=== PATIENT | male | born 1945 | race Caucasian/White ===

== ENCOUNTER 2020-08-14 01:05 | Day surgery (SDC) | payer MEDICARE, OTHER, SELFPAY ==
[2020-08-07 15:25] VITALS: BMI 36.9
--- NOTE | 2020-08-13 10:08 | WPDANESEPPF ---
Anes - Initial Pre Proc Eval Procedure: Operation Date: 08/14/20 07:30 Proposed Procedures p Right Calcaneus Metatarsal Osteotomy, Tendon Transfer Tibialis Anterior, Peroneal Tenodesis, - Abraham Pena MD s Achilles and Plantar Fascia Release - Abraham Pena MD Date/Time: 08/13/20 10:08 Surgeon: Abraham Pena MD Pre Op Diagnosis: right cavovarus foot Patient Data Age: 75 Gender: M Height: 1.85 m Weight: 127 kg Allergies Allergy/AdvReac Type Severity Reaction Status Date / Time No Known Allergies Allergy Verified 08/07/20 15:24 Home Medications Medication Instructions Recorded Confirmed Type amlodipine 5 mg tablet 5 mg PO QAM 07/09/20 08/07/20 History aspirin 81 mg tablet,delayed 81 mg PO DAILY 07/09/20 08/07/20 History release atorvastatin 40 mg tablet 40 mg PO HS 07/09/20 08/07/20 History carvedilol 3.125 mg tablet 3.125 mg PO BID 07/09/20 08/07/20 History levothyroxine 50 mcg capsule 50 mcg PO QAM 07/09/20 08/07/20 History lisinopril 10 mg tablet 10 mg PO QAM 07/09/20 08/07/20 History nitroglycerin 0.4 mg sublingual 0.4 mg SUBLINGUAL Q5M PRN 07/09/20 08/07/20 History tablet oxygen-air delivery systems 07/09/20 07/09/20 History loratadine 10 mg PO DAILY 08/07/20 08/07/20 History multivitamin [Daily Multiple] 1 tablet PO DAILY 08/07/20 08/07/20 History tamsulosin 0.4 mg PO HS 08/07/20 08/07/20 History Patient hx anesthesia problems: none Family hx anesthesia problems: none [facility] Past Medical History Medical History (Updated 08/13/20 @ 16:10 by Abraham Pena MD) Acquired cavovarus deformity of right foot Foot pain, right History of skin cancer Hyperlipidemia Hypertension MIRANDA (obstructive sleep apnea) CPAP Peroneal tendonitis of right lower leg Sleep apnea Vertigo Wears glasses Weight gain Surgical History Surgical History History of surgery Right leg, 2020, Dr. [place] History of thyroidectomy Social History Social History Smoking packs per day: 1.25 Smoking cigarettes per day: 25.0 Years smoked: 41 Smoking pack-years: 51.25 Smoking status: Former smoker Tobacco type: cigarettes Smoking end date: 08/07/04 Alcohol intake: current Alcohol use details: 5 per year Substance use: never Substance use type: does not use Living arrangements: alone Gender identity (if verbalized by the patient): Male Spiritual care concerns: No Anes - Eval Final PreProcedure Day of Procedure 08/13/20 10:08 Patient weight: obese Heart: regular rate and rhythm Lungs: clear to auscultation and normal air movement Airway: Mallampati scale class III Neurological: alert and oriented Last oral intake: >/= 8 hours ASA classification: III Emergent: no Anesthetic plan: proceed Anesthesia type and monitoring: general LMA and standard monitoring Informed Consent: The patient's anesthetic plan and its attendant risks and benefits were discussed with the patient/family/POA. Questions were solicited and answers provided to the satisfaction of the patient/family/POA.
--- NOTE | 2020-08-13 10:21 | WPDANESPNB ---
Anes - Peripheral Nerve Block Date/Time: 08/13/20 10:21 I have discussed with the patient/family/POA the placement of a peripheral nerve block for post-operative pain management, including associated risks, benefits, complications, and side effects. Alternative methods of post-operative analgesia were detailed. Questions were solicited and answers provided to the satisfaction of the patient/family/POA. Time-Out: A pre-procedural Time-Out was completed immediately before starting the procedure and confirmed: Patient Identification, Site, Procedure, Patient Position and the Availability of Requisite Equipment. Clinical Indications: Acute post-operative pain management requested by the operative surgeon. Nerve Block Insertion Note Anes-nerve block: posterior fossa sciatic right and adductor canal right Patient position: supine (for adductor canal) and other (right lateral for popliteal) Skin prep: chlorhexidine Needle: 22 gauge, stimulating, insulated echogenic needle. Needle length: 80 mm Technique: nerve stimulation lost at (mA) (for popliteal lost at 0.2) and ultrasound Injectate: bupivacaine 0.5% with epi 5 mcg/ml (20 mL for popliteal, 10 mL for adductor canal (no epi)) Observations: tolerated well Complications: none Procedure start time:: 710 Procedure end time:: 720
--- NOTE | 2020-08-13 16:07 | PM.IMHP ---
H&P: HPI History of Present Illness Date/Time: 08/13/20 16:07 Chief Complaint: Right foot deformity with pain Narrative: 75-year-old gentleman with right cavovarus foot deformity, weakness, stiffness and pain with activity. Patient has failed non operative treatment including bracing, inserts, physical therapy, medication and home exercise regimen. He has a history of previous skin cancer of the right lower leg. He presents now for operative treatment for his foot deformity. Review of Systems Constitutional: Constitutional: Denies fever(s) Eyes: Eyes: Denies blurry vision ENT: Reports Normal hearing present Cardiovascular: Cardiovascular: Denies chest pain and Denies dyspnea Respiratory: Respiratory: Denies dyspnea and Denies wheezing Gastrointestinal: Gastrointestinal: Denies abdominal pain Genitourinary: Genitourinary: Denies urinary urgency Musculoskeletal: Musculoskeletal: Reports as per HPI and Denies numbness Integumentary/Breasts: Skin/Breast: Denies changing lesions, Reports lesions ( Right lower leg) and Denies sores Neurologic: Reports Normal hearing present, Denies behavioral changes, Denies confusion, Denies numbness and Denies convulsions Psychiatric: Psychiatric: Denies behavioral changes, Denies confusion and Denies hallucinations Endocrine: Endocrine: Denies heat intolerance Hematologic/Lymphatic: Hematologic/Lymphatic: Denies easy bleeding Allergic/Immunologic: Allergic/Immunologic: Denies wheezing PMFSH Past Medical History Medical History (Updated 08/13/20 @ 16:10 by Abraham Pena MD) Acquired cavovarus deformity of right foot Foot pain, right History of skin cancer Hyperlipidemia Hypertension MIRANDA (obstructive sleep apnea) CPAP Peroneal tendonitis of right lower leg Sleep apnea Vertigo Wears glasses Weight gain Surgical History Surgical History History of surgery Right leg, 2020, Dr. [place] History of thyroidectomy Social History Social History Smoking packs per day: 1.25 Smoking cigarettes per day: 25.0 Years smoked: 41 Smoking pack-years: 51.25 Smoking status: Former smoker Tobacco type: cigarettes Smoking end date: 08/07/04 Alcohol intake: current Alcohol use details: 5 per year Substance use: never Substance use type: does not use Living arrangements: alone Gender identity (if verbalized by the patient): Male Spiritual care concerns: No Meds Home Medications and Allergies Home Medications Medication Instructions Recorded Confirmed Type amlodipine 5 mg tablet 5 mg PO QAM 07/09/20 08/07/20 History aspirin 81 mg tablet,delayed 81 mg PO DAILY 07/09/20 08/07/20 History release atorvastatin 40 mg tablet 40 mg PO HS 07/09/20 08/07/20 History carvedilol 3.125 mg tablet 3.125 mg PO BID 07/09/20 08/07/20 History levothyroxine 50 mcg capsule 50 mcg PO QAM 07/09/20 08/07/20 History lisinopril 10 mg tablet 10 mg PO QAM 07/09/20 08/07/20 History nitroglycerin 0.4 mg sublingual 0.4 mg SUBLINGUAL Q5M PRN 07/09/20 08/07/20 History tablet oxygen-air delivery systems 07/09/20 07/09/20 History loratadine 10 mg PO DAILY 08/07/20 08/07/20 History multivitamin [Daily Multiple] 1 tablet PO DAILY 08/07/20 08/07/20 History tamsulosin 0.4 mg PO HS 08/07/20 08/07/20 History Allergies Allergy/AdvReac Type Severity Reaction Status Date / Time No Known Allergies Allergy Verified 08/07/20 15:24 Exam Const: General: healthy appearing; No in distress or confusion Orientation/consciousness: oriented to person, oriented to place, oriented to time and No confusion HENMT: Head: normal to inspection, normocephalic and atraumatic Eyes: Conjunctivae: conjunctivae normal Sclera: sclerae normal Neck: Neck: supple and nontender Resp: Effort & Inspection: normal respiratory effort and no audible wheezes Cardio: Rate: regula
[2020-08-14] VITALS (20 sets, daily range): BP systolic 100–149; BP diastolic 37–73; PULSE 68–86; RESP 12–18; TEMP 36.1–36.5; O2SAT 88–100
--- NOTE | ~2020-08-14 | XR_ITS ---
EXAMINATION: XR surgery orthopedic DATE: 08/14/2020 10:34 INDICATION: Right foot surgery. TECHNIQUE: 3 intraoperative fluoroscopic views of right foot were obtained. I was not present. Fluoro scopy exposure time was 28 seconds. COMPARISON: Right foot radiographs 07/09/2020 FINDINGS: There are changes of calcaneal osteotomy with fixation with 2 lag screws. There is an osteo radha of first metatarsal with staple fixation. Skin max are noted. IMPRESSION: 1. Osteotomies of calcaneus and first metatarsal with internal fixation. Reviewed, dictated and finalized at location A.
[2020-08-14] MEDS: ACETAMINOPHEN 500 MG TABLET 1000 MG PO (06:31)
[2020-08-14] MEDS: KETOROLAC 15 MG/ML VIAL (*BKC) IV PUSH (06:32)
[2020-08-14] MEDS: LACTATED RINGERS 1,000 ML 30 ML IV CONT ×2 (06:39→11:00)
--- NOTE | 2020-08-14 06:59 | WPDHPUPDATE1 ---
History and Physical Update Update Date/Time: 08/14/20 06:59 History and Physical has been reviewed, including an updated exam of the patient. There are NO changes in the patient's condition. Risks, benefits, and alternatives have been discussed and questions answered. Patient agrees to proceed with procedure.
[2020-08-14] MEDS: ceFAZolin 3 GM/D5W 100 ML 100 ML IVPB (07:28)
--- NOTE | 2020-08-14 11:26 | W.PM.PROC2 ---
Procedure Note - Detailed Date of Procedure 08/14/20 Pre-op Diagnosis right cavovarus foot , muscle imbalance Post-op Diagnosis same Procedure Performed right foot correction with calcaneal and metatarsal osteotomies, tibialis anterior transfer to the midfoot, peroneal tenodesis, plantar fascia release and flexor tenotomy. Surgeon Abraham Pena MD Instrument Repairer Helper bar assistant Anesthesia general and regional Indications 75-year-old gentleman with right cavovarus foot deformity and muscle imbalance. He has failed conservative treatment bracing and inserts. He continues to have deformity and pain difficulty with weight-bearing and daily activity. He presents now for operative treatment. Description of Procedure patient identified in the preoperative holding area. Operative extremity marked. Patient received intravenous antibiotics. Informed consent given and patient was brought to the operating room positioned supine on the operative room table. Preoperative regional nerve block performed by the anesthesia team followed by general anesthesia. Time-out was performed confirming the patient, site of the surgery and the plan. Right lower extremity was then prepped and draped usual sterile surgical fashion using a ChloraPrep skin solution. Foot and ankle exsanguinated and a thigh tourniquet inflated to 250 mmHg. We addressed the calcaneus 1st. Oblique incision made over the lateral aspect of the calcaneal tuberosity. The sural nerve was identified and retracted. Subperiosteal dissection from the lateral side of the calcaneus. Fluoroscopy used to help guide the osteotomy. Sagittal saw used to make an osteotomy from lateral to medial. This was completed with the osteotome. Lateral closing wedge was then taken approximately 8 mm in width. The osteotomy was closed down and fixation was achieved with 6.7 mm cannulated screws x2. Image intensification confirmed placement of the hardware and alignment of the calcaneus. Wound thoroughly irrigated antibiotic solution to the periosteum was closed with 2 Vicryl interrupted suture. Incision made in the peroneal tendon sheath and the peroneal tendons were identified. There is extensive hypertrophy and scarring of the peroneus longus. A tenodesis was performed of the longus to the brevis tendon using 2. FiberWire suture. The peroneus longus was then released distal to the tenodesis. Wounds thoroughly irrigated antibiotic solution and the subcutaneous tissue closed with 3 Monocryl interrupted suture. Skin approximated with max. Medial aspect of the foot addressed. Oblique incision made over the medial aspect of the plantar fascia. Neurovascular elements were retracted. The medial aspect of the fascia was identified and a complete release of the plantar fascia was then performed from medial to lateral. Wound thoroughly irrigated subcutaneous tissue closed with 3 Monocryl Interrupted suture and skin repair was max. A longitudinal incision made over the medial aspect of the distal tibia with a 15 blade knife. Hemostasis controlled with cautery. Tendon sheath over the posterior tibial tendon to its size line with skin incision. The tendon was then identified and a partial release of the tendinous portion was performed with a 15 blade knife. The muscular portion was left intact. Transfer the tendon was not able to be completed due to soft tissue disruption over the anterior ankle from previous cancer treatment. Wound thoroughly irrigated antibiotic solution. The subcutaneous tissue repaired with 3 Monocryl interrupted suture and skin repaired with max. We then addressed the dorsum of the foot. Longitudinal incision made at the base of the 1st metatarsal over the dorsum with a 15 blade knife. Hemostasis controlled electrocautery. Neurovascular elements retracted. Base of the 1st metatarsal was exposed and a closing dorsal wedge osteotomy was performed dorsum plantar. Approximately 6 mm of wedge was
[2020-08-14] MEDS: fentaNYL CITRATE INJ (*CRX) 100 MCG/2 ML VIAL 25 MCG IV PUSH (12:10)
--- NOTE | 2020-08-14 13:10 | ADMGEN ---
This patient, Sharif Owusu, was admitted to Medical Room 249-01. Patient/family oriented to hospital policies and general routines including ID bracelet, bed and alarms, visiting hours, pain management, procedures, bathroom and other care routines, personal items, smoking policy, room service/diet, and visiting hours. Information on how to activate the Rapid Response Team has been discussed. Patient/Family are encouraged to report perceived risks to care and to ask questions if they do not understand what they are told or what they should do.
--- NOTE | 2020-08-14 13:36 | PCOTNOTE ---
Per RN, hold OT evaluation this date as patient is very lethargic and not feeling well. Will attempt OT evaluation tomorrow as medically appropriate.
--- NOTE | 2020-08-14 14:13 | PCPTNOTE ---
RN stated to hold PT due to pt being lethargic and not feeling well. Will try again tomorrow.
--- NOTE | 2020-08-14 15:09 | PM.PNORT ---
Progress Note: A&P Assessment and Plan (1) Acquired cavovarus deformity of right foot: Code(s): M21.6X1 - Other acquired deformities of right foot Status: Acute Assessment and Plan: surgery this morning. Stable at this time. Nerve block functioning. Patient comfortable. Continue with edema control. PT/OT with nonweightbearing. Will re-evaluate in morning. Subjective Subjective Date/Time Seen: 08/14/20 15:09 Post Op day: 0 Principal diagnosis: Right cavovarus foot deformity Interval history: afternoon of surgery. Patient in room. No complaints. Exam Const: General: healthy appearing; No in distress or confusion Orientation/consciousness: oriented to person, oriented to place, oriented to time and No confusion HENMT: Head: normal to inspection, normocephalic and atraumatic Eyes: Conjunctivae: conjunctivae normal Sclera: sclerae normal Neck: Neck: supple and nontender Resp: Effort & Inspection: normal respiratory effort and no audible wheezes Cardio: Rate: regular rate Rhythm: regular rhythm Skin: General skin exam: no rashes or lesions noted Neuro: General: oriented to person, oriented to place, oriented to time and No confusion Extrem: Right upper extremity: normal to inspection Left upper extremity: normal to inspection Right lower extremity: normal capillary refill Left lower extremity: hip/thigh Details: normal to inspection; no tenderness and no swelling, knee Details: normal to inspection; no tenderness and no swelling, ankle Details: tenderness (anterolateral ankle and sinus tarsi ), swelling (mild anterior and anterolateral ) and abnormal ROM Details: pain with active ROM Details: with dorsiflexion and with range as follows ( dorsiflexion -10 degrees, plantar flexion 40?, eversion 5?, inversion 15?) and foot Details: abnormal to inspection ( cavovarus foot deformity with lesser clawtoe deformity, hallux cock-up deformity) Details: a deformity ( lesser toe deformity fixed), tenderness (plantar heel, forefoot and toes ), no edema, edema (mild lateral hindfoot ), vascular exam (2+ dorsalis pedis pulse) and motor-sensory exam (strength 5/5 plantar flexion and inversion. Tibialis anterior and peroneal 4/5 .) two point discrimination abnormal, light-touch abnormal in all toes and pin-prick abnormal in all toes; no ecchymosis Other: right foot elevated. Splint in place. Toes with good capillary refill. Nerve block functioning Psych: Affect: normal affect Objective Data Vital Signs Vital Signs: Vital Signs - 24 hr 08/14/20 06:30 08/14/20 11:00 08/14/20 11:15 Temperature 96.9 F L 97.7 F Pulse Rate 78 68 69 Respiratory Rate 16 12 12 Blood Pressure 143/62 H 106/57 L 104/52 L Pulse Oximetry 96 98 95 08/14/20 11:30 08/14/20 11:45 08/14/20 12:00 Temperature Pulse Rate 70 74 86 Respiratory Rate 12 14 14 Blood Pressure 100/52 L 104/67 134/37 L Pulse Oximetry 93 95 95 08/14/20 12:13 08/14/20 12:15 08/14/20 12:30 Temperature 97.7 F Pulse Rate 77 73 Respiratory Rate 16 14 Blood Pressure 138/71 127/73 Pulse Oximetry 88 L 92 100 08/14/20 13:30 08/14/20 14:03 Temperature Pulse Rate Respiratory Rate Blood Pressure Pulse Oximetry 95 97 Intake/Output Intake/Output: Intake & Output 08/11/20 08/12/20 08/13/20 08/14/20 23:59 23:59 23:59 23:59 Intake Total 350 Output Total 300 Balance 50 Meds/Results Medications: Active Medications Generic Name Dose Route Start Last Admin Trade Name Freq PRN Reason Stop Dose Admin Acetaminophen 650 mg 08/14/20 12:37 Acetaminophen 325 Mg Tablet PO Q6H PRN Pain Rated 1-3 Hydrocodone Bitart/Acetaminophen 2 tab 08/14/20 12:37 Hydrocodone/Acetaminophen (*Crx) 7.5-325 Mg Tablet PO Q6H PRN Pain Rated 7-10 Amlodipine Besylate 5 mg 08/15/20 09:00 Amlodipine Besylate 5 Mg Tablet [facility] [place] Aspirin 81 mg 08/15/20 09:00 Aspirin 81 Mg Enteric Tablet PO D
[2020-08-14] MEDS: carvediloL 3.125 MG TABLET PO (17:26)
[2020-08-14] MEDS: DOCUSATE SODIUM 100 MG CAPSULE PO (17:26)
[2020-08-14] MEDS: ATORVASTATIN 40 MG TABLET PO (21:02)
[2020-08-14] MEDS: TAMSULOSIN HCL 0.4 MG CAPSULE PO (21:02)
[2020-08-15 01:53] VITALS: BP 145/59; PULSE 74; RESP 16; TEMP 36.4; O2SAT 99
[2020-08-15] MEDS: HYDROcodone/acetaminophen (*CRX) 7.5-325 MG TABLET 2 TAB PO ×2 (04:42→10:51)
[2020-08-15 05:39] LABS: Basophils Percent Auto 0.4 % (0.2-1.2); Hematocrit 43.3 % (42.0-52.0); Hemoglobin 13.7 g/dL (14.0-18.0); Immature Granulocyte Absolute 0.04 K/mm3 (0.00-0.031); Immature Granulocyte Percent A 0.4 % (0-0.5); Lymphocytes Absolute Auto 1.26 K/mm3 (0.9-3.2); Lymphocytes Percent Auto 12.7 % (18.3-44.2); Mean Corpuscular HGB Conc 31.6 g/dl (32-36); Mean Corpuscular Hemoglobin 28.2 pg (26-34); Mean Corpuscular Volume 89.1 fl (80-100); Monocytes Absolute Auto 0.8 K/mm3 (0.1-0.6); Monocytes Percent Auto 7.8 % (2.6-8.5); Neutrophils Absolute Auto 7.8 K/mm3 (1.3-6.7); Neutrophils Percent Auto 78.7 % (45.5-73.1); Platelet Count Result 191 k/mm3 (150-375); Red Blood Count 4.86 M/mm3 (4.6-6.20); White Blood Count 9.9 K/mm3 (4.5-10.0)
[2020-08-15 05:52] VITALS: BP 146/90; PULSE 85; RESP 16; TEMP 36; O2SAT 99
[2020-08-15] MEDS: LEVOTHYROXINE SODIUM 50 MCG TABLET PO (05:54)
[2020-08-15 06:07] LABS: Anion Gap 9 mmol/L (8-16); Blood Urea Nitrogen 17 mg/dL (9-20); Calcium 8.7 mg/dL (8.4-10.2); Carbon Dioxide 22 mmol/L (22-30); Chloride 108 mmol/L (98-107); Estimated CRCL calculation 81 ml/min; Estimated Glomerular Filt Rate > 60; Glucose 116 mg/dL (75-110); Potassium 4.3 mmol/L (3.4-5.0); Sodium 139 mmol/L (137-145)
[2020-08-15] MEDS: ASPIRIN 81 MG ENTERIC TABLET PO (08:12)
[2020-08-15] MEDS: MULTIVITAMINS THERAPEUTIC TAB (*BKC) 1 TABLET PO (08:12)
[2020-08-15] MEDS: DOCUSATE SODIUM 100 MG CAPSULE PO (08:12)
[2020-08-15] MEDS: lisinopriL 10 MG TABLET PO (08:12)
[2020-08-15] MEDS: LORATADINE 10 MG TABLET PO (08:12)
[2020-08-15] MEDS: amLODIPine BESYLATE 5 MG TABLET PO (08:12)
[2020-08-15 08:13] VITALS: PULSE 85
[2020-08-15] MEDS: carvediloL 3.125 MG TABLET PO (08:13)
[2020-08-15 10:23] VITALS: O2SAT 93
[2020-08-15 10:45] VITALS: BP 128/59; PULSE 72; RESP 18; TEMP 36.3; O2SAT 94
--- NOTE | 2020-08-15 11:18 | PM.PNORT ---
Progress Note: A&P Assessment and Plan (1) Acquired cavovarus deformity of right foot: Code(s): M21.6X1 - Other acquired deformities of right foot Status: Acute Assessment and Plan: Postoperative day 1. Right cavovarus foot correction. Laboratory testing within normal limits this morning. Patient awake and alert. Pain well controlled while nerve block starting to wear off. PT/OT today with nonweightbearing right leg crutches or walker for ambulation. Patient has knee scooter at home. Continue with edema control with ice and elevation, pain control. Plan for discharge home if stable and cleared from therapy. Subjective Subjective Date/Time Seen: 08/15/20 08:18 Post Op day: 1 Principal diagnosis: Right foot cavovarus Interval history: patient awake and alert. Starting to feel the right foot. No problems eating or voiding at this point. Exam Const: General: healthy appearing; No in distress or confusion Orientation/consciousness: oriented to person, oriented to place, oriented to time and No confusion HENMT: Head: normal to inspection, normocephalic and atraumatic Eyes: Conjunctivae: conjunctivae normal Sclera: sclerae normal Neck: Neck: supple and nontender Resp: Effort & Inspection: normal respiratory effort and no audible wheezes Cardio: Rate: regular rate Rhythm: regular rhythm Skin: General skin exam: no rashes or lesions noted Neuro: General: oriented to person, oriented to place, oriented to time and No confusion Extrem: Right upper extremity: normal to inspection Left upper extremity: normal to inspection Right lower extremity: normal capillary refill Left lower extremity: hip/thigh Details: normal to inspection; no tenderness and no swelling, knee Details: normal to inspection; no tenderness and no swelling, ankle Details: tenderness (anterolateral ankle and sinus tarsi ), swelling (mild anterior and anterolateral ) and abnormal ROM Details: pain with active ROM Details: with dorsiflexion and with range as follows ( dorsiflexion -10 degrees, plantar flexion 40?, eversion 5?, inversion 15?) and foot Details: abnormal to inspection ( cavovarus foot deformity with lesser clawtoe deformity, hallux cock-up deformity) Details: a deformity ( lesser toe deformity fixed), tenderness (plantar heel, forefoot and toes ), no edema, edema (mild lateral hindfoot ), vascular exam (2+ dorsalis pedis pulse) and motor-sensory exam (strength 5/5 plantar flexion and inversion. Tibialis anterior and peroneal 4/5 .) two point discrimination abnormal, light-touch abnormal in all toes and pin-prick abnormal in all toes; no ecchymosis Other: right foot elevated. Splint in place. Toes with good capillary refill. Nerve block wearing off- partial light touch sensation, able to flex toes Psych: Affect: normal affect Objective Data Vital Signs Vital Signs: Vital Signs - 24 hr 08/14/20 11:30 08/14/20 11:45 08/14/20 12:00 Temperature Pulse Rate 70 74 86 Respiratory Rate 12 14 14 Blood Pressure 100/52 L 104/67 134/37 L Pulse Oximetry 93 95 95 08/14/20 12:13 08/14/20 12:15 08/14/20 12:30 Temperature 97.7 F Pulse Rate 77 73 Respiratory Rate 16 14 Blood Pressure 138/71 127/73 Pulse Oximetry 88 L 92 100 08/14/20 13:00 08/14/20 13:15 08/14/20 13:30 Temperature 97.0 F L 97.0 F L Pulse Rate 71 71 Respiratory Rate 18 16 Blood Pressure 126/59 L 139/59 L Pulse Oximetry 95 97 95 08/14/20 13:45 08/14/20 14:03 08/14/20 14:45 Temperature 97.0 F L 97.0 F L Pulse Rate 69 72 Respiratory Rate 18 16 Blood Pressure 146/61 H 149/63 H Pulse Oximetry 99 97 96 08/14/20 17:26 08/14/20 18:45 08/14/20 20:00 Temperature 97.1 F L Pulse Rate 72 84 85 Respiratory Rate 16 16 Blood Pressure 135/57 L Pulse Oximetry 94 92 08/14/20 21:26 08/14/20 22:00 08/15/20 01:53 Temperature 97.5 F L 97.5 F L Pulse Rate 85 85 74 Respiratory Rate 16 16 Blood Pressure 143/65 H 145/59 H Pulse Oxim
--- NOTE | 2020-08-15 13:28 | P.PNAN_ITS ---
Anes - Prog Note Post-Op Date/Time: 08/15/20 13:28 Cardiovascular status: normal Respiratory status: normal Airway patency: baseline Mental status: baseline Post-Op hydration status: normal Vital Signs: Last Vital Signs Temp 36.3 C L 08/15/20 10:45 Pulse 72 08/15/20 10:45 Resp 18 08/15/20 10:45 BP 128/59 L 08/15/20 10:45 Pulse Ox 94 08/15/20 10:45 Pain Score (VAS): 1 I/O: Intake & Output 08/14/20 08/15/20 08/15/20 23:59 07:59 15:59 Intake Total 640 400 300 Output Total 350 2450 Balance 290 -2050 300 Laboratory Tests 08/15/20 05:03 08/15/20 05:03 08/15/20 08/15/20 05:03 05:03 WBC 9.9 RBC 4.86 Hgb 13.7 L Hct 43.3 MCV 89.1 MCH 28.2 MCHC 31.6 L RDW 14.0 Plt Count 191 MPV 10.0 Immature Gran % (Auto) 0.4 Neut % (Auto) 78.7 H Lymph % (Auto) 12.7 L Eagle % (Auto) 7.8 Eos % (Auto) 0.0 Baso % (Auto) 0.4 Lymph # (Auto) 1.26 Eagle # (Auto) 0.8 H Eos # (Auto) 0.0 Baso # (Auto) 0.0 Abs Immat Gran (auto) 0.04 H Absolute Neuts (auto) 7.8 H Absolute Nucleated RBC 0.0 Nucleated RBC % 0.0 Sodium 139 Potassium 4.3 Chloride 108 H Carbon Dioxide 22 Anion Gap 9 BUN 17 Creatinine 1.00 Estim Creat Clear Calc 81 Estimated GFR > 60 Glucose 116 H Calcium 8.7 Post-procedural complaints: none Patient Feedback: Patient satisfied with anesthetic care.
== END 2020-08-15 14:20 | disposition home or self-care (01) ==
LOC: ANHSURGERY 06:25 → ANH2MED 12:39
PROVIDERS: Visit Provider Orthopaedic Surgery
PROC: (CPT 28750; principal; 2020-08-14 07:30)
PROC: (CPT 27650; 2020-08-14 07:30)
DX: M21.6X1 Other acquired deformities of right foot (principal); Z79.82 Long term (current) use of aspirin; G47.33 Obstructive sleep apnea (adult) (pediatric); Z87.891 Personal history of nicotine dependence; M76.71 Peroneal tendinitis, right leg; M79.671 Pain in right foot; G89.18 Other acute postprocedural pain; E66.9 Obesity, unspecified; Z68.37 Body mass index [BMI] 37.0-37.9, adult
CPT/HCPCS: 28308; 28208; 27690; 28250; 64445; 64447; 36415; 80048; 85025; 97161; 97165; 97530; A9270; C1769; J0690; J1885; J2250; J3010; J7120